=== PATIENT | female | born 2000 ===

== ENCOUNTER 2021-02-13 14:13 | Emergency (ER) | payer OTHER ==
[~2021-02-13] VITALS: Ht 165.1 cm; Wt 52.6 kg
[2021-02-13] MEDS ORDERED: ALBU90OI (14:36)
[2021-02-13] MEDS ORDERED: DICL75ER PO (15:47)
== END 2021-02-13 16:03 | disposition home or self-care (01) ==
LOC: ER 14:13
DX: S43.004A Unspecified dislocation of right shoulder joint, initial encounter (principal); X58.XXXA Exposure to other specified factors, initial encounter; Y93.72 Activity, wrestling
CPT/HCPCS: 29105; 73030; 99283-25